=== PATIENT | female | born 1995 | race Caucasian/White ===

== ENCOUNTER 2019-05-17 20:49 | Emergency (ER) | payer MEDICAID ==
[~2019-05-17] VITALS: Ht 160 cm; Wt 70.9 kg
[~2019-05-17 20:49] MED LIST: ACET-141 PO; IBUP-1561 PO
[2019-05-17 20:53] VITALS: BP 120/75; PULSE 88; RESP 16; Ht 160 cm; Wt 70.9 kg
[2019-05-17] MEDS ORDERED: ACETAMINOPHEN 325 MG TAB PO ONE (22:00)
== END 2019-05-18 00:17 | disposition home or self-care (01) ==
LOC: FTE 20:49
DX: S60.811A Abrasion of right wrist, initial encounter (principal); V49.49XA Driver injured in collision with other motor vehicles in traffic accident, initial encounter
CPT/HCPCS: 73090; 73110; 73130; 81025; Z7502; Z7610